=== PATIENT | male | born 1960 | race Caucasian/White ===

== ENCOUNTER → 2017-10-19 | Outpatient (CLI) | payer BC ==
--- NOTE | 2017-10-19 08:04 | MR ---
EXAMINATION TYPE: MR knee LT wo con DATE OF EXAM: 10/19/2017 COMPARISON: NONE HISTORY: Pain in left knee TECHNIQUE: Multiplanar, multisequence images of the knee is performed without IV contrast. FINDINGS: MEDIAL MENISCUS: Oblique tear medial meniscus posterior horn. Anterior horn demonstrates mild myxoid degeneration.. LATERAL MENISCUS: Anterior and posterior horns are intact without tear. CRUCIATE LIGAMENTS: The anterior and posterior cruciate ligaments are intact and unremarkable. COLLATERAL LIGAMENTS: The medial collateral ligament and lateral collateral ligament complex are inta ct and unremarkable. EXTENSOR MECHANISM: Visualized quadriceps and patellar tendons are intact. EFFUSION: Small to moderate suprapatellar joint effusion. POPLITEAL CYST: Popliteal fossa cyst measuring 2.1 cm in length. TRICOMPARTMENT SPACES: Severe narrowing patellofemoral joint space with changes of chondromalacia pat maxi and interposed spurring. Subchondral cyst formation and cartilaginous thinning. Moderate narrowi ng medial tibiofemoral joint space with subchondral edema. OTHER: No additional significant abnormality is appreciated. IMPRESSION: 1. Oblique tear posterior horn medial meniscus. 2. Advanced changes of osteoarthritis.
== END | disposition home or self-care (01) ==
LOC: RADMRIMAIN 06:13
PROVIDERS: ATTEND Orthopaedic Surgery
DX: S83.242A Other tear of medial meniscus, current injury, left knee, initial encounter (principal); M17.12 Unilateral primary osteoarthritis, left knee

== ENCOUNTER 2018-03-22 17:54 | Emergency (ER) | payer BC ==
--- NOTE | 2018-03-22 19:59 | ED ---
Lower Extremity Injury HPI - General Chief Complaint: Extremity Injury, Lower Stated Complaint: Calf Pain-Sent by ortho Time Seen by Provider: 03/22/18 19:59 Source: patient Mode of arrival: ambulatory Limitations: no limitations - History of Present Illness Initial Comments: Seamus is a previously healthy 57-year-old male who presents the emergency department today via private vehicle from his orthopedic office for evaluation of left leg swelling. Patient reports that last Thursday he had left knee arthroscopy, he reports he's been feeling absolutely great since then. He does report that he's been walking around a lot and does admit to walking somewhat on his tiptoes due to some discomfort in the knee. He is concerned that he may have strained his calf. Today he pointed out some tenderness in his calf to his orthopedist who advised him to come to the ER for evaluation of possible DVT. Patient has no history of DVTs. He has been able to since the procedure. He denies any chest pain, palpitations, shortness of breath. - Related Data Home Medications Medication Instructions Recorded Confirmed Atorvastatin [Lipitor] 20 mg PO HS 03/22/18 03/22/18 Buprenorphine HCl/Naloxone HCl 0.5 film SL TID 03/22/18 03/22/18 [Suboxone 8 mg-2 mg Sl Film] Losartan [Cozaar] 50 mg PO DAILY 03/22/18 03/22/18 Multivitamins, Thera [Multivitamin 1 tab PO DAILY 03/22/18 03/22/18 (formulary)] QUEtiapine [SEROquel] 100 mg PO HS 03/22/18 03/22/18 traZODone HCL [Desyrel] 100 mg PO HS 03/22/18 03/22/18 Previous Rx's Medication Instructions Recorded Apixaban [Eliquis] 5 mg PO BID 30 Days #60 tab 03/22/18 Allergies Allergy/AdvReac Type Severity Reaction Status Date / Time Penicillins Allergy Rash/Hives Verified 03/22/18 20:05 Review of Systems ROS Statement: Those systems with pertinent positive or pertinent negative responses have been documented in the HPI. ROS Other: All systems not noted in ROS Statement are negative. Past Medical History Additional Past Medical History / Comment(s): pt takes suboxone History of Any Multi-Drug Resistant Organisms: None Reported Past Surgical History: Orthopedic Surgery Past Psychological History: No Psychological Hx Reported Smoking Status: Never smoker Past Alcohol Use History: None Reported Past Drug Use History: None Reported General Exam - General Exam Comments Initial Comments: GENERAL: Patient is well-developed and well-nourished. Patient is nontoxic and well- hydrated and is in no distress. HENT: Normocephalic, Atraumatic. EYES: The sclera were anicteric and conjunctiva were pink and moist. Extraocular movements were intact and pupils were equal round and reactive to light. Eyelids were unremarkable. PULMONARY: Unlabored respirations. Good breath sounds bilaterally. No audible rales rhonchi or wheezing was noted. CARDIOVASCULAR: There is a regular rate and rhythm without any murmurs gallops or rubs. ABDOMEN: Soft and nontender with normal bowel sounds. SKIN: Skin is clear with no lesions or rashes and otherwise unremarkable. Well healing arthroscopic incisions on the medial and lateral left anterior knee NEUROLOGIC: Patient is alert and oriented x3. Cranial nerves II through XII are grossly intact. Motor and sensory are also intact. Normal speech, volume and content. Symmetrical smile. MUSCULOSKELETAL: Normal extremities with adequate strength and full range of motion. Left calf slightly larger than right, mild erythema noted however patient does admit to rubbing his calf while waiting to be evaluated LYMPHATICS: No significant lymphadenopathy is noted PSYCHIATRIC: Normal psychiatric evaluation. Limitations: no limitations Limitations: no limitations Course Vital Signs 03/22/18 03/22/18 03/22/18 18:33 20:23 21:15 Temperature 98.0 F 97.6 F Pulse Rate 69 74 Respiratory 18 16 16 Rate Blood Pressure 113/76 127/65 O2 Sat by Pulse 94 L 96 Oximetry Medical Decision Making - Medical Decision Making Patient seen and evaluated, history obtained from the patient, DVT study ordered Venous Doppler does reveal popliteal vein DVT is also discussed with the patient , I will prescribe him Eliquis which she will begin taking tomorrow. Return parameters were discussed in detail. Patient again reports that he has absolutely no chest pain, palpitations or shortness of breath. DVT study did reveal that this is only a distal DVT no proximal DVT noted. The importance of follow-up with primary care physician for reexamination, repeat DVT and discussion of long-term anticoagulation was discussed. All questions pertaining care were answered best my ability patient was discharged home in stable condition with a prescription for Eliquis Disposition Clinical Impression: DVT of popliteal vein Disposition: HOME SELF-CARE Condition: Good Instructions: Deep Vein Thrombosis (ED) Prescriptions: Apixaban [Eliquis] 5 mg PO BID 30 Days #60 tab Is patient prescribed a controlled substance at d/c from ED?: No Referrals: Nonstaff,Physician [Primary Care Provider] - 1-2 days
[2018-03-22 20:24] VITALS: RESP 16
--- NOTE | 2018-03-22 20:59 | US ---
EXAMINATION TYPE: US venous doppler duplex LE LT DATE OF EXAM: 03/22/2018 8:43 PM COMPARISON: NONE CLINICAL HISTORY: edema post op. Left leg pain post op. SIDE PERFORMED: Left TECHNIQUE: The lower extremity deep venous system is examined utilizing real time linear array sonog jenn with graded compression, doppler sonography and color-flow sonography. VESSELS IMAGED: External Iliac Vein (EIV) Common Femoral Vein Deep Femoral Vein Greater Saphenous Vein * Femoral Vein Popliteal Vein Small Saphenous Vein * Proximal Calf Veins (* superficial vessels Left Leg: Positive for DVT Positive for DVT Distal Left Popliteal Vein. IMPRESSION: There is limited deep venous thrombosis in the popliteal vein.
[2018-03-22 21:20] VITALS: BP 127/65; PULSE 74; TEMP 97.6
== END 2018-03-22 21:15 | disposition home or self-care (01) ==
LOC: EC 17:54
DX: I82.432 Acute embolism and thrombosis of left popliteal vein (principal); Z79.899 Other long term (current) drug therapy; Z88.0 Allergy status to penicillin
CPT/HCPCS: 99283